=== PATIENT | female | born 1990 | race Caucasian/White ===

== ENCOUNTER → 2019-12-15 11:10 | Outpatient (CLI) | payer OTHER, SELFPAY ==
[2019-12-15 12:30] LABS: HCG,Quantitative 15 mIU/ml (0-5.42)
== END ==
PROVIDERS: Visit Provider Nurse Practitioner Obstetrics & Gynecology
DX: Z34.90 Encounter for supervision of normal pregnancy, unspecified, unspecified trimester (principal)
CPT/HCPCS: 36415; 84702

== ENCOUNTER → 2019-12-17 09:16 | Outpatient (CLI) | payer OTHER, SELFPAY ==
[2019-12-17 10:51] LABS: HCG,Quantitative 7 mIU/ml (0-5.42)
== END ==
PROVIDERS: Visit Provider Nurse Practitioner Obstetrics & Gynecology
DX: Z32.00 Encounter for pregnancy test, result unknown (principal)
CPT/HCPCS: 36415; 84702

== ENCOUNTER → 2020-01-26 12:13 | Outpatient (CLI) | payer OTHER, SELFPAY ==
[2020-01-26 13:37] LABS: HCG,Quantitative 3574 mIU/ml (0-5.42)
== END ==
PROVIDERS: Visit Provider Nurse Practitioner Obstetrics & Gynecology
DX: Z34.90 Encounter for supervision of normal pregnancy, unspecified, unspecified trimester (principal)
CPT/HCPCS: 36415; 84702

== ENCOUNTER → 2020-02-03 11:54 | Outpatient (CLI) | payer OTHER, SELFPAY ==
--- NOTE | 2020-02-03 11:55 | US_ITS ---
PROCEDURE: US OB <= 14 WEEKS FETUS CLINICAL INDICATION: for dates COMPARISON: No exams were available for comparison FINDINGS: An intrauterine gestational sac is present with a pole with a crown-rump length of 0.26cm correlating to gestational age of 5weeks 6days. heart tones are present with an FHR of 114bpm. Yolk sac is noted. IMPRESSION: Live IUP at 5 weeks 6 days. Estimated due date by Ultrasound is 09/29/2020 Dictated by: Joel Colin MD 02/03/2020 17:41 Joel Colin MD in [facility] 02/03/2020 17:41
[2020-02-03 17:51] LABS: Basophils % 0.6 % (0.1-2.0); Eosinophils # 0.2 K/mm3 (0.0-0.4); Eosinophils % 3.2 % (0.1-12.0); Hematocrit 37.7 % (37.0-47.0); Hemoglobin 13.4 g/dL (12.2-16.2); Lymphocytes # 1.9 K/mm3 (0.7-4.5); Mean Corpuscular HGB Conc 35.6 g/dL (31.8-35.4); Mean Corpuscular Volume 87.1 fl (81-99); Mean Platelet Volume 8.7 fl (7.4-10.4); Monocytes # 0.3 K/mm3 (0.1-1.0); Neutrophils # 4.4 K/mm3 (1.8-7.8); Neutrophils % 64.2 % (37.0-80.0); Platelet Count 179 K/mm3 (142-424); Red Blood Count 4.32 M/mm3 (4.20-5.40); Red Cell Distribution Width 12.7 % (11.5-17.5); White Blood Count 6.8 K/mm3 (4.8-10.8)
[2020-02-05 05:25] LABS: HIV Screen 4th Generation wRfx Non Reactive (Non Reactive)
[2020-02-05 09:23] LABS: Hepatitis B Surface Antigen Negative (Negative)
[2020-02-05 09:24] LABS: Hepatitis C Antibody <0.1 s/co ratio (0.0-0.9); Rubella Antibodies, IgG 2.21 index (Immune >0.99)
[2020-02-05 10:48] LABS: Rapid Plasma Reagin Ab Titer Non Reactive (NonRea<1:1)
== END ==
PROVIDERS: Visit Provider Nurse Practitioner Obstetrics & Gynecology
DX: Z34.90 Encounter for supervision of normal pregnancy, unspecified, unspecified trimester (principal)
CPT/HCPCS: 36415; 76801; 85025; 86592; 86703; 86762; 86850; 87340; 87380; G0432

== ENCOUNTER → 2020-03-02 15:32 | Outpatient (CLI) | payer OTHER, SELFPAY | PROVIDERS: Visit Provider Nurse Practitioner Obstetrics & Gynecology | DX: N39.0 Urinary tract infection, site not specified (principal) | CPT/HCPCS: 87086; 87088; 87186 ==

== ENCOUNTER → 2020-04-13 14:05 | Outpatient (CLI) | payer OTHER, SELFPAY ==
--- NOTE | 2020-04-13 14:10 | US_ITS ---
PROCEDURE: US OB FOLLOW UP CLINICAL INDICATION: Spottin in Second Trimester-ONLY COMPARISON: US US OB <= 14 WEEKS FETUS from 02/03/2020 FINDINGS: A single live fetus in breech presentation. Cervix is closed. Placenta is posterior and grade 1. No previa or abruption. Cervix measures 4.5 cm Measurements: Average ultrasound age 16weeks. Gestational Age 15weeks 6days Estimated due date by ultrasound age 0509/28/2020. Estimated weight 136g BPD = 16weeks 1day OFD = 16weeks 3days HC = 16weeks AC = 15weeks 6days FL = 15weeks 6days Growth Percentile= 38Percent% Heart Rate = 155bpm Cerebellum = Humerus = HC/AC is 1.22 CI is 0.76 FL/BPD is 0.6 FL/AC is 0.2 IMPRESSION: Live IUP with an average ultrasound age of 16 weeks and breech presentation as described above. This does not constitute an anatomy exam. Posterior placenta grade 1. No evidence of previa or abruption. Dictated by: Joel Colin MD 04/14/2020 12:29 Joel Colin MD in [facility] 04/14/2020 12:29
== END ==
PROVIDERS: Visit Provider Nurse Practitioner Obstetrics & Gynecology
DX: O26.852 Spotting complicating pregnancy, second trimester (principal); Z3A.15 15 weeks gestation of pregnancy
CPT/HCPCS: 76816

== ENCOUNTER 2020-04-23 00:31 | Emergency (ER) | payer OTHER, SELFPAY ==
--- NOTE | 2020-04-23 00:56 | HMH.EDGENADL ---
ED Disposition Clinical Impression: Intrauterine , Abdominal cramping Constipation Qualifiers: Constipation type: unspecified constipation type Qualified Code(s): K59.00 - Constipation, unspecified Disposition: Home, Self-Care Condition on Discharge: Good Additional Instructions: You were seen on an emergency basis. It is very important that you follow up with your primary care provider and/or specialist as we discussed within 2 days. All labs and imaging were obtained and interpreted here to rule out life threatening emergencies, but your final results should be reviewed by your primary doctor at your follow up appointment. Please return to the emergency department if any of your symptoms worsen, or if they do not improve as we discussed. Referrals: Winston Lowry MD [Primary Care Provider] - - Critical Care Critical Care Time: No Attestation: On 04/23/20, the high probability of a clinically significant, sudden or life threatening deterioration of the following system(s) required my full and direct attention, intervention and personal management. The time I documented below is in addition to time spent performing reported procedures but includes the following listed in this critical care notation. Medical Decision Making - Medical Records Medical records reviewed: Yes: I reviewed the patient's medical records. - Russell Inquiry Pt receiving controlled substance: No Vital Signs: 04/23/20 01:08 Temperature 98.0 F Temperature Source Oral Pulse Rate [Right] 82 Respiratory Rate 18 Blood Pressure [Right Arm] 118/74 Blood Pressure Mean [Right Arm] 88 Blood Pressure Source [Right Arm] Automatic Cuff Blood Pressure Position [Right Arm] Sitting 02 Sat by Pulse Oximetry 98 Oxygen Delivery Method Room Air - Lab Data Lab results reviewed: Yes: I reviewed the patient's lab results. Lab Results 04/23/20 00:50: Urine Color Yellow, Urine Appearance Sl cloudy, Urine pH 8.0, Ur Specific [place] 1.020, Urine Protein Negative, Urine Glucose (UA) Negative, Urine Ketones Negative, Urine Blood Negative, Urine Nitrate Negative, Urine Bilirubin Negative, Urine Urobilinogen 0.2, Ur Leukocyte Esterase Negative, Ur Squamous Epith Cells 20-50, Amorphous Sediment 3+ 04/23/20 01:00: WBC 8.4, RBC 3.99 L, Hgb 12.4, Hct 35.5 L, MCV 88.9, MCH 31.0, MCHC 34.9, RDW 14.3, Plt Count 167, MPV 8.9, Neut % (Auto) 63.7, Lymph % (Auto) 29.2, [place] % (Auto) 3.9, Eos % (Auto) 2.8, Baso % (Auto) 0.4, Neut # (Auto) 5.3, Lymph # (Auto) 2.5, [place] # (Auto) 0.3, Eos # (Auto) 0.2, Baso # (Auto) 0.0 04/23/20 01:00: Sodium 138, Potassium 3.6, Chloride 106, Carbon Dioxide 26, Anion Gap 9.6, BUN 8, Creatinine 0.50 L, Estimated Creat Clear 181, Estimated GFR 146, Est GFR ( Amer) 177, Glucose 72 L, Calcium 9.5, Total Bilirubin 0.5, AST 23, ALT 10 L, Alkaline Phosphatase 55, Total Protein 6.7, Albumin 3.8, Globulin 2.9, Albumin/Globulin Ratio 1.3, Lipase 63 Result diagrams: 04/23/20 01:00 04/23/20 01:00 Orders (Tests/Meds): ED MEDICATIONS Discontinued Medications Generic Name Dose Route Start Last Admin Trade Name Freq PRN Reason Stop Dose Admin Acetaminophen 500 mg 04/23/20 01:15 04/23/20 01:19 Acetaminophen 500mg Tab PO 04/23/20 01:16 500 mg ONCE ONE Administration Medical Decision Narrative: 30-year-old female 17 weeks presenting with abdominal cramping. Nontoxic, afebrile, hemodynamically stable. Initial and repeat abdominal exam negative for rebound/guarding/rigidity. This is not an acute abdomen. Bed sound ultrasound by me demonstrated an IUP with a heart rate of 150. CBC, CMP and lipase are nonactionable. Urinalysis is negative for bacteriuria. Patient received 500 mg of oral Tylenol but states that she still having intermittent cramping. She is attributing this to constipation as she has had hard, painful bowel movements recently which is likely secondary to Subutex. I offered the patient a b
[2020-04-23 00:57] VITALS: BMI 26.5
[2020-04-23 01:02] LABS: Microscopic, Urine URINE MICROSCOPIC (MICROSCOPIC)
[2020-04-23 01:03] LABS: Appearance,Urine SL CLOUDY (Clear); Bilirubin,Urine Negative (Negative); Blood, Urine Negative (Negative); Color,Urine YELLOW (Yellow); Glucose,Urine (UA) Negative (Negative); Ketones,Urine Negative (Negative); Leukocyte Esterase,Urine Negative (Negative); Nitrate,Urine Negative (Negative); Protein,Urine Negative (Negative); Urobilinogen,Urine 0.2 EU/dl (0.2)
[2020-04-23 01:08] VITALS: BP 118/74; PULSE 82; RESP 18; TEMP 36.7; O2SAT 98; BMI 26.9
[2020-04-23 01:08] LABS: Amorphous Sediment,Urine 3+ /lpf; Squamous Epithelial Cell,Urine 20-50 #/hpf (0-5)
[2020-04-23 01:12] LABS: Basophils % 0.4 % (0.1-2.0); Eosinophils # 0.2 K/mm3 (0.0-0.4); Eosinophils % 2.8 % (0.1-12.0); Hematocrit 35.5 % (37.0-47.0); Hemoglobin 12.4 g/dL (12.2-16.2); Lymphocytes # 2.5 K/mm3 (0.7-4.5); Lymphocytes % 29.2 % (10-50); Mean Corpuscular HGB Conc 34.9 g/dL (31.8-35.4); Mean Corpuscular Volume 88.9 fl (81-99); Mean Platelet Volume 8.9 fl (7.4-10.4); Monocytes # 0.3 K/mm3 (0.1-1.0); Monocytes % 3.9 % (1.7-9.3); Neutrophils # 5.3 K/mm3 (1.8-7.8); Neutrophils % 63.7 % (37.0-80.0); Platelet Count 167 K/mm3 (142-424); Red Blood Count 3.99 M/mm3 (4.20-5.40); Red Cell Distribution Width 14.3 % (11.5-17.5); White Blood Count 8.4 K/mm3 (4.8-10.8)
[2020-04-23 01:18] LABS: Chloride 106 mmol/L (98-107)
--- NOTE | 2020-04-23 01:18 | PC.NURSE ---
heart tones 150 BPM
[2020-04-23 01:19] LABS: Potassium 3.6 mmoL/L (3.5-5.1); Sodium 138 mmol/L (136-145)
[2020-04-23 01:21] LABS: Alanine Aminotransferase 10 U/L (12-78); Alkaline Phosphatase 55 U/L (38-126); Anion Gap 9.6 mEq/L (5-15); Aspartate Amino Transferase 23 U/L (14-36); Bilirubin,Total 0.5 mg/dl (0.2-1.3); Blood Urea Nitrogen 8 mg/dl (7-17); Carbon Dioxide 26 mmol/L (22.0-30.0); Creatinine Clearance Estimated 181 mL/min (50-200); Estimated Glomerular Filt Rate 146 ml/min (>60); GFR (African American) 177 ML/MIN (>60)
[2020-04-23 01:22] LABS: Albumin Level 3.8 g/dl (3.5-5.0); Albumin/Globulin Ratio 1.3 (1.1-1.8); Calcium 9.5 mg/dl (8.4-10.2); Globulin 2.9 g/dL (1.3-3.2); Glucose 72 mg/dl (74-100); Lipase 63 U/L (23-300); Total Protein,Serum 6.7 g/dl (6.3-8.2)
[2020-04-23 01:39] VITALS: BP 105/63; PULSE 77; RESP 18; TEMP 36.7; O2SAT 98
== END 2020-04-23 01:42 | disposition home or self-care (01) ==
PROVIDERS: Emergency Provider Physician Assistant; PCP Nurse Practitioner Obstetrics & Gynecology
DX: K59.00 Constipation, unspecified (principal); Z3A.17 17 weeks gestation of pregnancy; R73.9 Hyperglycemia, unspecified; J45.909 Unspecified asthma, uncomplicated; Z88.0 Allergy status to penicillin; Z87.891 Personal history of nicotine dependence
CPT/HCPCS: 80053; 81001; 83690; 85025; 99282

== ENCOUNTER → 2020-04-27 13:32 | Outpatient (CLI) | payer OTHER, SELFPAY ==
[2020-04-27 13:35] LABS: Microscopic, Urine URINE MICROSCOPIC (MICROSCOPIC)
[2020-04-27 14:27] LABS: Appearance,Urine SL CLOUDY (Clear); Bilirubin,Urine Negative (Negative); Blood, Urine Negative (Negative); Color,Urine YELLOW (Yellow); Glucose,Urine (UA) Negative (Negative); Ketones,Urine Negative (Negative); Leukocyte Esterase,Urine Negative (Negative); Nitrate,Urine Negative (Negative); Protein,Urine Negative (Negative); Specific Gravity, Urine >= 1.030 (1.005-1.030); Urobilinogen,Urine 0.2 EU/dl (0.2)
[2020-04-27 14:47] LABS: Cystine Crystals,Urine Trace /lpf; WBC,Urine Occasional #/hpf (0-3)
[2020-04-27 14:48] LABS: Bacteria,Urine Trace /lpf; Squamous Epithelial Cell,Urine 20-50 #/hpf (0-5)
== END ==
PROVIDERS: Visit Provider Nurse Practitioner Obstetrics & Gynecology
DX: Z34.90 Encounter for supervision of normal pregnancy, unspecified, unspecified trimester (principal); Z3A.17 17 weeks gestation of pregnancy
CPT/HCPCS: 81001

== ENCOUNTER → 2020-05-02 09:07 | Outpatient (CLI) | payer OTHER, SELFPAY ==
--- NOTE | 2020-05-02 09:08 | US_ITS ---
PROCEDURE: US GALLBLADDER CLINICAL INDICATION: rt. upper quadrant pain in Epigastric pain COMPARISON: No exams were available for comparison FINDINGS: Pancreas: Pancreas is not well delineated due to overlying bowel gas. CT or MRI without and with contrast with pancreatic protocol may provide further evaluation if clinically desired. Liver: Unremarkable. There is appropriate direction of blood flow within a non dilated portal vein. Right kidney: Unremarkable appearing. No hydronephrosis. Gallbladder: No stones are evident. There is no gallbladder wall thickening. Common duct is normal in diameter. IMPRESSION: Negative gallbladder ultrasound. No stones evident. Dictated by: Joel Colin MD 05/02/2020 18:10 Joel Colin MD in [facility] 05/02/2020 18:10
== END ==
PROVIDERS: PCP Nurse Practitioner Obstetrics & Gynecology; Visit Provider Nurse Practitioner Obstetrics & Gynecology
DX: O26.899 Other specified pregnancy related conditions, unspecified trimester (principal); R10.11 Right upper quadrant pain
CPT/HCPCS: 76705

== ENCOUNTER → 2020-05-12 13:07 | Outpatient (CLI) | payer OTHER, SELFPAY ==
--- NOTE | 2020-05-12 13:07 | US_ITS ---
PROCEDURE: US OB /MATERNAL DETAIL CLINICAL INDICATION: 20 week gestation Anatomy exam COMPARISON: US US OB FOLLOW UP from 04/13/2020 FINDINGS: There is a single live intrauterine gestation which is in cephalic presentation. The cervix is closed and measures 3.8 cm. The placenta is posterior in implantation and grade 1. Complete survey performed and was unremarkable on the submitted images as in PACS. No discrete anomalies identified on survey imaging by technologist. Active fetus. Three-vessel cord with satisfactory umbilical cord insertion. 4- chamber heart noted. Survey of brain & ventricles Unremarkable. Face and neck survey unremarkable. Diaphragm and chest views unremarkable. Abdomen: Both kidneys noted and unremarkable. Stomach noted and satisfactory. Spine: Survey of the spine satisfactory with no anomalies identified nor imaged. Both arms and legs noted. Amniotic Fluid: Adequate. Maternal adnexa: No significant findings. Measurements: Average ultrasound age 20weeks 1day. Gestational Age 20weeks Estimated due date by ultrasound age 0509/28/2020. Estimated weight 333g BPD = 20weeks 1day OFD = 20weeks 4days HC = 19weeks 4days AC = 20weeks 2days FL = 20weeks 1day Growth Percentile= 52Percent% Heart Rate = 158bpm Cerebellum = 20weeks 1day Humerus = 20weeks 4days HC/AC is 1.13 CI is 0.77 FL/BPD is 0.69 FL/AC is 0.22 IMPRESSION: Live IUP with an average ultrasound age 20 weeks and 1 day. No obvious anomalies. Please see above for detailed description. Dictated by: Joel Colin MD 05/13/2020 10:25 Joel Colin MD in [facility] 05/13/2020 10:25
== END ==
PROVIDERS: Visit Provider Nurse Practitioner Obstetrics & Gynecology
DX: Z34.90 Encounter for supervision of normal pregnancy, unspecified, unspecified trimester (principal); Z3A.20 20 weeks gestation of pregnancy
CPT/HCPCS: 76811

== ENCOUNTER → 2020-08-16 08:18 | Outpatient (CLI) | payer OTHER, SELFPAY ==
[2020-08-16 09:45] LABS: Glucose,Fasting 90 mg/dl (74-100)
[2020-08-16 10:28] LABS: Glucose 1 Hour 135 mg/dL (74-100)
== END ==
PROVIDERS: Visit Provider Nurse Practitioner Obstetrics & Gynecology
DX: Z34.90 Encounter for supervision of normal pregnancy, unspecified, unspecified trimester (principal)
CPT/HCPCS: 36415; 82951

== ENCOUNTER → 2020-08-22 09:26 | Outpatient (CLI) | payer OTHER, SELFPAY ==
[2020-08-22 10:07] LABS: Basophils % 0.4 % (0.1-2.0); Eosinophils # 0.1 K/mm3 (0.0-0.4); Eosinophils % 2.4 % (0.1-12.0); Hematocrit 28.1 % (37.0-47.0); Hemoglobin 9.5 g/dL (12.2-16.2); Lymphocytes # 1.8 K/mm3 (0.7-4.5); Mean Corpuscular HGB Conc 33.7 g/dL (31.8-35.4); Mean Corpuscular Hemoglobin 30.3 pg (27.0-31.2); Mean Platelet Volume 10.6 fl (7.4-10.4); Monocytes # 0.3 K/mm3 (0.1-1.0); Monocytes % 5.6 % (1.7-9.3); Neutrophils # 3.2 K/mm3 (1.8-7.8); Neutrophils % 58.6 % (37.0-80.0); Platelet Count 143 K/mm3 (142-424); Red Blood Count 3.12 M/mm3 (4.20-5.40); Red Cell Distribution Width 13.4 % (11.5-17.5); White Blood Count 5.5 K/mm3 (4.8-10.8)
[2020-08-22 10:26] LABS: Alanine Aminotransferase 10 U/L (12-78); Albumin Level 2.9 g/dl (3.5-5.0); Albumin/Globulin Ratio 1.1 (1.1-1.8); Alkaline Phosphatase 119 U/L (38-126); Anion Gap 6.6 mEq/L (5-15); Aspartate Amino Transferase 25 U/L (14-36); Bilirubin,Total 0.6 mg/dl (0.2-1.3); Blood Urea Nitrogen 3 mg/dl (7-17); Calcium 8.5 mg/dl (8.4-10.2); Carbon Dioxide 23 mmol/L (22.0-30.0); Chloride 109 mmol/L (98-107); Estimated Glomerular Filt Rate 146 ml/min (>60); GFR (African American) 177 ML/MIN (>60); Globulin 2.6 g/dL (1.3-3.2); Glucose 75 mg/dl (74-100); Potassium 3.6 mmoL/L (3.5-5.1); Sodium 135 mmol/L (136-145); Total Protein,Serum 5.5 g/dl (6.3-8.2)
[2020-08-22 10:35] LABS: NT Pro Brain Natriuretic Pep. 46.9 pg/mL (0-125)
== END ==
PROVIDERS: Visit Provider Nurse Practitioner Obstetrics & Gynecology
DX: Z34.90 Encounter for supervision of normal pregnancy, unspecified, unspecified trimester (principal); Z3A.34 34 weeks gestation of pregnancy
CPT/HCPCS: 36415; 80053; 83880; 85025

== ENCOUNTER → 2020-08-28 17:24 | Outpatient (CLI) | payer OTHER, SELFPAY | PROVIDERS: Visit Provider Nurse Practitioner Obstetrics & Gynecology | DX: Z34.90 Encounter for supervision of normal pregnancy, unspecified, unspecified trimester (principal) | CPT/HCPCS: 86403 ==

== ENCOUNTER 2020-09-03 22:36 | Outpatient (CLI) | payer OTHER, SELFPAY ==
[2020-09-03 22:44] VITALS: BMI 29.9
[2020-09-03 22:45] VITALS: BP 117/63; PULSE 88; RESP 20; TEMP 36.7; O2SAT 97; BMI 29.9
[2020-09-03 23:27] LABS: Microscopic, Urine URINE MICROSCOPIC (MICROSCOPIC)
[2020-09-03 23:31] LABS: Appearance,Urine CLEAR (Clear); Bilirubin,Urine Negative (Negative); Blood, Urine Negative (Negative); Color,Urine YELLOW (Yellow); Glucose,Urine (UA) Negative (Negative); Ketones,Urine Negative (Negative); Leukocyte Esterase,Urine Negative (Negative); Nitrate,Urine Negative (Negative); PH,Urine 6.5 (5.0-8.5); Protein,Urine Negative (Negative); Specific Gravity, Urine 1.015 (1.005-1.030)
[2020-09-03 23:33] LABS: Fetal Membrane Rupture (Rapid) Negative (Negative)
[2020-09-03 23:40] LABS: Bacteria,Urine 1+ /lpf
[2020-09-03 23:44] LABS: Benzodiazepines Screen,Urine Negative ng/ml (<200)
[2020-09-03 23:45] LABS: Amphetamine/Metha Screen,Urine Negative ng/ml (<1000)
[2020-09-03 23:46] LABS: Barbiturates Screen,Urine Negative ng/ml (<200); Cannabinoid Screen,Urine Negative ng/ml (<50)
[2020-09-03 23:47] LABS: Cocaine Screen,Urine Negative ng/ml (<300)
[2020-09-03 23:48] LABS: Methadone Screen,Urine Negative ng/ml (<300); Opiate Screen,Urine Negative ng/ml (<300)
[2020-09-03 23:49] LABS: Phencyclidine Screen,Urine Negative ng/ml (<25)
[2020-09-11 13:41] LABS: Buprenorphine, Urine Positive (Cutoff=10)
== END 2020-09-04 00:05 | disposition home or self-care (01) ==
LOC: OBOUT 22:37 → OB 22:38
PROVIDERS: Visit Provider Nurse Practitioner Obstetrics & Gynecology
DX: O47.03 False labor before 37 completed weeks of gestation, third trimester (principal); Z3A.36 36 weeks gestation of pregnancy
CPT/HCPCS: 59025; 80305; 80307; 81001; 84112; 96360; 96365; 96372; G0463

== ENCOUNTER 2020-09-16 10:00 | Inpatient (IN) | payer OTHER, SELFPAY ==
[2020-09-16 09:36] VITALS: BP 140/83; PULSE 73; RESP 18; TEMP 36.8; BMI 31.8
--- NOTE | 2020-09-16 10:06 | HMH.OBAPHP ---
OB - H&P: HPI Antepartum - History of Present Illness Chief complaint: contractions History of present illness: 30 yo @ [birth year] presented with contractions and active labor. Cervical exam 9cm with BBOW at admission AROM with clear fluid care with Dr. Lowry complicated by subutex maintenance (8mg BID) and anemia Hgb was 9.5 on 08/22 but current labs pending at time of delivery Patient also had significant lower extremity edema which was worked up for potential cardiac issues and negative FOB has history of ASD and ultrasound/echo done by MFM and normal GBS negative [facility] History I have reviewed the patient's past medical history: Yes Medical History: Reports:: Asthma Denies:: Cancer, Diabetes Mellitus Type 1, Diabetes Mellitus Type 2, Internal Pacemaker, MRSA *Have you ever received a pneumonia vaccine?: No *Have you received a flu vaccine this season?: No Laterality Cases: Bilateral: Tonsillectomy Other Surgeries: No: , Pacemaker Amputation: No Fractures: No - *Social History Smoking Status: Former smoker Alcohol Intake: never Alcohol Intake Frequency:: other Substance Use Type: former substance user, prescription drug (subutex 8mg BID) *Occupational Status:: unemployed *Travel in the last 8 weeks: None Family Hx:: Diabetes, Heart Attack, Asthma LABORER ELECTROPLATING history: Spontaneous : 4 Para: 2 A: 1 LMP comments: Review of Systems - Review of Systems Review of systems:: pertinent systems reviewed and negative unless documented below - Constitutional Denies fever(s) - *Cardiovascular Reports leg swelling, Denies chest pain - *Respiratory Denies shortness of breath - *Genitourinary Reports other (uterine contractions), Denies abnormal vaginal bleeding Meds Home Medications Medication Instructions Recorded Confirmed Type PNV 153-FA 400 mcg-om3 35 mg-dha 1 tab PO DAILY #30 tab 02/03/20 09/13/20 Rx 25 mg-epa 5 mg-fish oil chew tablet buprenorphine HCl 8 mg sublingual 8 mg SUBLINGUAL BID 02/03/20 09/13/20 History tablet omeprazole 20 mg capsule,delayed 20 mg PO DAILY #90 cap 06/27/20 09/13/20 Rx release ondansetron 4 mg disintegrating 4 mg PO Q6H PRN #30 tab 07/03/20 09/13/20 Rx tablet polysaccharide iron complex 180 mg 180 mg PO BID #60 cap 07/14/20 09/13/20 Rx iron capsule Allergies Allergy/AdvReac Type Severity Reaction Status Date / Time Penicillins Allergy Intermediate Swelling Verified 09/13/20 10:51 of Lip/Tongue/Throat OB - H&P: Exam - Constitutional moderate distress (active labor) - Routine HEENT Exam Head: Present: normocephalic, atraumatic Eye: Absent: conjunctival icterus ENT: Present: mucous membranes moist - Routine Neck Exam Present: supple - Routine Chest/Breast/Axilla Exam Chest wall: Absent: tenderness - Routine Respiratory Exam Absent: respiratory distress - Routine Cardiovascular Exam Present: RRR - Routine Abdominal Exam Present: soft. Absent: tenderness, distended - Routine Exam Comments: 9cm/100% BBOW AROM clear fluid - Routine Extremities Exam Present: edema (1+) - Routine Back/Spine/Pelvis Exam Back/Spine: Absent: CVA tenderness - Routine Skin Exam Present: intact, dry. Absent: rash - Routine Neurological Exam Present: alert, oriented X3 - Routine Psychiatric Exam Present: normal affect OB - A/P Antepartum (1) 38 weeks gestation of Status: Acute (2) Active labor at term Status: Acute (3) complicated by subutex maintenance, antepartum Status: Acute (4) Anemia complicating Status: Acute - Additional Plan Additional Information:: Admission for active labor Anticipate Labs pending Peds notified regarding delivery and maternal subutex dependence
--- NOTE | 2020-09-16 10:30 | PC.NURSE ---
Dr Atkins (acetone recovery worker Film Numberer) notified of of live at 1023. occurred at 1014. 7 (tone and color) 9 (color)
--- NOTE | 2020-09-16 11:09 | HMH.DN ---
- Delivery Note Delivery Date:: 09/16/20 Delivery Time:: 10:14 Anesthesia Type: None Was labor medically induced?: No Infant delivered prior to 39 weeks?: Yes Justification for early elective delivery:: Active Labor Infant Gender: Male at 1 minute: 7 Delivery Procedure:: Spontaneous vaginal delivery of liveborn male infant over intact perineum. Delivery uncomplicated No nuchal cord; no shoulder dystocia with delivery taken to warmer immediately after umbilical cord clamped/cut, with standard nursing assessment performed Infant Apgars: 7 & 9 Placenta spontaneously expressed and examined; noted to be complete/intact. Vulva, vagina, and cervix inspected; 1st degree laceration repaired with 2-0 vicryl using local administration of lidocaine 1% without epinephrine EBL: 300 cc All sponge/needle/instrument counts correct at conclusion of procedure Disposition: Mom/baby stable to recovery in LDRP Laceration:: vaginal Placental Delivery Description: Spontaneous
[2020-09-16 11:42] LABS: Basophils % 0.2 % (0.1-2.0); Eosinophils # 0.1 K/mm3 (0.0-0.4); Eosinophils % 0.7 % (0.1-12.0); Hematocrit 29.4 % (37.0-47.0); Hemoglobin 9.7 g/dL (12.2-16.2); Lymphocytes # 1.1 K/mm3 (0.7-4.5); Lymphocytes % 11.3 % (10-50); Mean Corpuscular HGB Conc 33.1 g/dL (31.8-35.4); Mean Corpuscular Hemoglobin 28.5 pg (27.0-31.2); Mean Corpuscular Volume 86.3 fl (81-99); Mean Platelet Volume 10.4 fl (7.4-10.4); Monocytes # 0.2 K/mm3 (0.1-1.0); Monocytes % 2.5 % (1.7-9.3); Neutrophils # 7.9 K/mm3 (1.8-7.8); Neutrophils % 85.3 % (37.0-80.0); Platelet Count 127 K/mm3 (142-424); Red Blood Count 3.41 M/mm3 (4.20-5.40); Red Cell Distribution Width 13.5 % (11.5-17.5); White Blood Count 9.2 K/mm3 (4.8-10.8)
[2020-09-16 11:50] LABS: MANUAL DIFFERENTIAL MANUAL DIFFERENTIAL (MANUAL DIFF)
[2020-09-16 12:23] LABS: Acanthocytes 1+; Lymphocytes % 14 % (10-50); Monocytes % 3 % (2-9); Neutrophils % 83 % (42-76); Platelet Estimate Slight Decrease; Poikilocytosis 1+; Total Cells Counted 100
[2020-09-16 12:59] LABS: Microscopic, Urine URINE MICROSCOPIC (MICROSCOPIC)
[2020-09-16 13:04] LABS: Appearance,Urine CLEAR (Clear); Bilirubin,Urine Negative (Negative); Blood, Urine 3+ (Negative); Color,Urine YELLOW (Yellow); Glucose,Urine (UA) Negative (Negative); Ketones,Urine 1+ (Negative); Leukocyte Esterase,Urine TRACE (Negative); Nitrate,Urine Negative (Negative); PH,Urine 6.5 (5.0-8.5); Protein,Urine 1+ (Negative); Specific Gravity, Urine 1.015 (1.005-1.030)
[2020-09-16 13:14] LABS: RBC,Urine TNTC #/hpf (0-3); Squamous Epithelial Cell,Urine Occasional #/hpf (0-5)
[2020-09-16 13:15] LABS: Amorphous Sediment,Urine 1+ /lpf
[2020-09-16 13:16] LABS: Amphetamine/Metha Screen,Urine Negative ng/ml (<1000); Benzodiazepines Screen,Urine Negative ng/ml (<200)
[2020-09-16 13:17] LABS: Barbiturates Screen,Urine Negative ng/ml (<200); Cannabinoid Screen,Urine Negative ng/ml (<50)
[2020-09-16 13:18] LABS: Cocaine Screen,Urine Negative ng/ml (<300)
[2020-09-16 13:19] LABS: Methadone Screen,Urine Negative ng/ml (<300); Opiate Screen,Urine Negative ng/ml (<300)
[2020-09-16 13:20] LABS: Phencyclidine Screen,Urine Negative ng/ml (<25)
[2020-09-16 16:35] LABS: Hematocrit 29.3 % (37.0-47.0); Hemoglobin 9.6 g/dL (12.2-16.2)
--- NOTE | 2020-09-16 17:17 | HMH.DCSUM ---
General - General Admission date:: 09/16/20 Discharge date: 09/16/20 Hospital Course Hospital Course: Patient presented in active labor 9cm with BBOW Uncomplicated shortly after delivery; no nuchal cord or shoulder dystocia present with delivery Pediatric assessment of concerning for possible pneumothorax and transferred to Patient desires discharge same day in order to stay with infant H/H drawn 6 hours and stable Lochia WNL Rhogam Administration: Not Indicated Objective Vital signs: Temp Pulse Resp BP 98.3 F 73 18 140/83 09/16/20 09:36 09/16/20 09:36 09/16/20 09:36 09/16/20 09:36 Narrative: CONSTITUTIONAL: no acute distress HEENT: mucous membranes moist PULMONARY: breathing unlabored without audible wheezes CV: no tachycardia or visible JVD; normal LE peripheral pulses ABD: soft, NT/ND, no guarding : fundus firm at umbilicus SKIN: no visible rash or lesions EXT: no edema LEs NEURO: alert/oriented, no altered mental status PSYCH: appropriate mood and demeanor without visible anxiety/depression DS: Diagnosis - Discharge Diagnosis (1) 38 weeks gestation of Status: Acute (2) Active labor at term Status: Acute (3) complicated by subutex maintenance, antepartum Status: Acute (4) Anemia complicating Status: Acute (5) Normal vaginal delivery Status: Acute Discharge Plan - Patient Discharge Instructions ACTIVITY: Continue current activity DIET: regular diet Additional Instructions: No heavy lifting/strenuous activity. Nothing in the vagina for 6 weeks. Call on Friday to schedule a 2 week follow up appointment. Patient Instructions: Depression, Hemorrhage, DI for Labor and Delivery, Vaginal , DI for Pre-eclampsia, [facility] Post Discharge Instructions, Preventing the Spread of Coronavirus Discharge Instructions - Follow up Plan Follow up with: Winston Lowry MD [Staff Physician] - Disposition: Home, Self-Retirement Medications: Home Medications Medication Instructions Recorded Confirmed Type PNV 153-FA 400 mcg-om3 35 mg-dha 1 tab PO DAILY #30 tab 02/03/20 09/16/20 Rx 25 mg-epa 5 mg-fish oil chew tablet buprenorphine HCl 8 mg sublingual 8 mg SUBLINGUAL BID 02/03/20 09/16/20 History tablet omeprazole 20 mg capsule,delayed 20 mg PO DAILY #90 cap 02/02/21 04/24/21 Rx release ondansetron 4 mg disintegrating 4 mg PO Q6H PRN #30 tab 07/03/20 09/16/20 Rx tablet polysaccharide iron complex 180 mg 180 mg PO BID #60 cap 07/14/20 09/16/20 Rx iron capsule Prescriptions/Medication Reconciliation: Continued polysaccharide iron complex 180 mg iron capsule 180 mg PO BID #60 cap buprenorphine HCl 8 mg sublingual tablet 8 mg SUBLINGUAL BID PNV 153-FA 400 mcg-om3 35 mg-dha 25 mg-epa 5 mg-fish oil chew tablet 1 tab PO DAILY #30 tab omeprazole 20 mg capsule,delayed release 20 mg PO DAILY #90 cap Discontinued ondansetron 4 mg disintegrating tablet 4 mg PO Q6H PRN #30 tab PRN Reason: nausea and vomiting - Problem Reconciliation Problems Reviewed?: Yes
[2020-09-24 06:33] LABS: Buprenorphine Positive (.)
== END 2020-09-16 17:16 | disposition home or self-care (01) | DRG 807 ==
LOC: OBOUT 10:01 → OB 10:01
PROVIDERS: Admitting Provider Obstetrics & Gynecology; Visit Provider Obstetrics & Gynecology
DX: O32.3XX0 Maternal care for face, brow and chin presentation, not applicable or unspecified (principal); Z37.0 Single live birth; Z3A.38 38 weeks gestation of pregnancy; O70.0 First degree perineal laceration during delivery; Z79.899 Other long term (current) drug therapy; O99.019 Anemia complicating pregnancy, unspecified trimester
CPT/HCPCS: 59409; 36415; 59025; 80305; 80348; 81001; 85007; 85014; 85018; 85025; 86850; U0003

== ENCOUNTER → 2021-05-01 11:39 | Outpatient (CLI) | payer OTHER, SELFPAY ==
[2021-05-01 12:15] LABS: Basophils # 0.1 K/mm3 (0-0.2); Eosinophils # 0.2 K/mm3 (0.0-0.4); Eosinophils % 3.4 % (0.1-12.0); Hematocrit 38.2 % (37.0-47.0); Hemoglobin 13.2 g/dL (12.2-16.2); Lymphocytes # 2.1 K/mm3 (0.7-4.5); Lymphocytes % 35.3 % (10-50); Mean Corpuscular HGB Conc 34.5 g/dL (31.8-35.4); Mean Corpuscular Hemoglobin 29.3 pg (27.0-31.2); Mean Corpuscular Volume 84.9 fl (81-99); Mean Platelet Volume 10.1 fl (7.4-10.4); Monocytes # 0.2 K/mm3 (0.1-1.0); Monocytes % 2.7 % (1.7-9.3); Neutrophils # 3.5 K/mm3 (1.8-7.8); Neutrophils % 57.6 % (37.0-80.0); Platelet Count 197 K/mm3 (142-424); Red Cell Distribution Width 13.1 % (11.5-17.5); White Blood Count 6.1 K/mm3 (4.8-10.8)
[2021-05-01 12:52] LABS: Alanine Aminotransferase 26 U/L (12-78); Albumin Level 4.2 g/dl (3.5-5.0); Albumin/Globulin Ratio 1.6 (1.1-1.8); Alkaline Phosphatase 55 U/L (38-126); Anion Gap 7.7 mEq/L (5-15); Aspartate Amino Transferase 34 U/L (14-36); Bilirubin,Total 0.4 mg/dl (0.2-1.3); Blood Urea Nitrogen 14 mg/dl (7-17); Calcium 9.3 mg/dl (8.4-10.2); Carbon Dioxide 31 mmol/L (22.0-30.0); Chloride 104 mmol/L (98-107); Estimated Glomerular Filt Rate 98 ml/min (>60); GFR (African American) 119 ML/MIN (>60); Globulin 2.6 g/dL (1.3-3.2); Glucose 100 mg/dl (74-100); Potassium 3.7 mmoL/L (3.5-5.1); Sodium 139 mmol/L (136-145); Total Protein,Serum 6.8 g/dl (6.3-8.2)
[2021-05-01 13:11] LABS: Free T4 (Free Thyroxine) 1.13 ng/dl (0.78-2.19)
[2021-05-01 13:25] LABS: Thyroid Stimulating Hormone 1.59 uIU/mL (0.465-4.68)
[2021-05-01 13:43] LABS: Vitamin B12 551 pg/mL (239-931)
== END ==
PROVIDERS: Visit Provider Nurse Practitioner Family
DX: R53.81 Other malaise (principal); K59.09 Other constipation
CPT/HCPCS: 36415; 80053; 82306; 82607; 84439; 84443; 85025

== ENCOUNTER 2021-11-14 17:26 | Emergency (ER) | payer OTHER, SELFPAY ==
[2021-11-14 17:30] VITALS: BP 125/86; PULSE 131; RESP 16; TEMP 36.8; O2SAT 96; BMI 29.5
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
--- NOTE | 2021-11-14 18:11 | PC.NURSE ---
wounds cleaned by RN. MAYS notified
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
[2021-11-14 18:26] VITALS: PULSE 95
[2021-11-14 18:37] VITALS: BP 121/80; PULSE 96; RESP 16; TEMP 36.8; O2SAT 97
== END 2021-11-14 18:45 | disposition home or self-care (01) ==
PROVIDERS: Emergency Provider Emergency Medicine; PCP Internal Medicine Adolescent Medicine
DX: S90.812A Abrasion, left foot, initial encounter (principal); S60.512A Abrasion of left hand, initial encounter; S60.511A Abrasion of right hand, initial encounter; V43.52XA Car driver injured in collision with other type car in traffic accident, initial encounter; Z88.0 Allergy status to penicillin
CPT/HCPCS: 99282

== ENCOUNTER → 2021-11-29 14:34 | Outpatient (CLI) | payer OTHER, SELFPAY ==
--- NOTE | 2021-11-29 14:39 | XR_ITS ---
FINAL REPORT CLINICAL HISTORY: RIGHT SIDED CHEST WALL PAIN FINDINGS: 3 views of the right ribs were obtained. There is a fracture of the right 9th lateral rib. There is no pleural fluid collection or pneumothorax. A single view of the chest demonstrates no acute cardiopulmonary process. IMPRESSION: Right 9th lateral rib fracture without pneumothorax. Reviewed, Interpreted and Dictated by Solomon Ramirez III, MD Transcribed by Shemar Soto Authenticated and [facility]
== END ==
PROVIDERS: PCP Nurse Practitioner Family; Visit Provider Nurse Practitioner Family
DX: R07.89 Other chest pain (principal)
CPT/HCPCS: 71101

== ENCOUNTER 2022-09-05 13:48 | Emergency (ER) | payer OTHER, SELFPAY ==
[2022-09-05 13:49] VITALS: BP 147/93; PULSE 96; RESP 20; TEMP 37.3; O2SAT 97; BMI 29.6
--- NOTE | 2022-09-05 14:10 | EXP.UTC ---
Discharge Plan Disposition Patient Disposition: Home, Self-Care Condition: Good Prescriptions Prescriptions: New acyclovir 400 mg tablet 400 mg PO TID 7 Days Qty: 21 0RF acyclovir 5 % cream 1 applic topical 5XDAY 4 Days Qty: 5 0RF No Action Nexplanon 68 mg implant SUBDERMAL buprenorphine-naloxone 8-2 mg tablet, sublingual 2 tab SUBLINGUAL DAILY Label Comments: DISSOLVE 2 TABLETS UNDER THE TONGUE EVERY DAY Referrals Follow up/Referrals: Ethan Atkins MD [Primary Care Provider] - See instructions Activity Restrictions/Add. Instructions Additional Instructions/Restrictions: Drink plenty of fluids. Take tylenol or ibuprofen for pain or fever. Take the medications as directed. Follow up with your regular doctor. GO TO THE ER FOR ANY WORSENING SYMPTOMS Clinical Impressions Clinical Impression: Herpes labialis Stand Alone Forms Stand Alone Forms: Work/School Release Instructions Patient Instructions: Cold Sores, DI for Cold Sores, Acyclovir Topical, Acyclovir Discharge ED Provider: Gian Almeida [facility] General Stated complaint: Sore throat Mode of Arrival: Wheelchair Source of Information: Patient Limitations: No Limitations Time Seen by Provider: 09/05/22 14:08 Description of Symptoms (Recalled from Triage Doc. by RN): sore throat, swollen bottom lip HEENT Symptoms (Recalled from RN notes): Yes Resp Symptoms (Recalled from RN notes): No Skin Symptoms (Recalled from RN notes): No MS Symptoms (Recalled from RN notes): No Functional Status (Recalled from RN notes): n/a History of Present Illness Provider Complaint: She c/o having multiple fever blisters on her bottom lip. She states that this has caused her lip to become swollen. Related Data Home Medications Medication Instructions Recorded Confirmed etonogestrel 68 mg subdermal subdermal 10/06/20 11/03/20 implant (Nexplanon) buprenorphine 8 mg-naloxone 2 mg 2 tab sublingual DAILY . 11/03/20 09/05/22 sublingual tablet Previous Rx's Medication Instructions Recorded acyclovir 400 mg tablet 400 mg PO TID 7 days #21 tabs 09/05/22 acyclovir 5 % topical cream 1 applic topical 5XDAY 4 days #5 09/05/22 grams Allergies Allergy/AdvReac Type Severity Reaction Status Date / Time Penicillins Allergy Intermediate Swelling Verified 09/05/22 14:04 of Lip/Tongue/Throat Worker's Comp Is this a Worker's Comp case?: No [facility] Disclaimer: The information contained in this section may have been updated after the patient was seen, as this information can be updated by other users. Social History Smoking Status: Former smoker alcohol intake: never substance use type: former substance user and prescription drug current occupational status: unemployed Travel in the last 8 weeks: None ROS Obtained: Yes All systems reviewed & no additional complaints except as documented Constitutional Constitutional: Denies chills and Denies fever(s) Eyes Eyes: Denies eye discharge ENT Ears, Nose, Mouth, and Throat: Reports as per HPI, Denies dizziness, Denies otalgia and Reports sore throat Cardiovascular Cardiovascular: Denies chest pain Respiratory Respiratory: Denies shortness of breath, Denies chest congestion, Denies cough, Denies stridor and Denies wheezing Gastrointestinal Gastrointestingal: Denies nausea or vomiting Musculoskeletal Musculoskeletal: Reports system reviewed and no additional complaints, except as documented and Denies arthralgias Integumentary/Breasts Skin/Breast: Denies rash Neurologic Neurologic: Denies dizziness and Denies paresthesias Allergic/Immunologic Allergic/Immunologic: Denies wheezing Physical Exam General General appearance: alert and in no apparent distress Head Head exam: atraumatic, normocephalic and normal inspection Eye Eye exam: Present normal appearance, PERRL and EOMI ENT ENT exam: P
[2022-09-05 14:11] LABS: UTC Strep Screen (Rapid) Negative (Negative)
[2022-09-05 15:09] VITALS: BP 147/93; PULSE 96; RESP 20; TEMP 37.3; O2SAT 97
== END 2022-09-05 15:08 | disposition home or self-care (01) ==
PROVIDERS: Emergency Provider Nurse Practitioner Family; PCP Internal Medicine Adolescent Medicine
DX: B00.9 Herpesviral infection, unspecified (principal); Z87.891 Personal history of nicotine dependence
CPT/HCPCS: 87880; 99204; 99212; G0463